=== PATIENT | male | born 1970 ===

== ENCOUNTER 2016-06-03 13:48 | Emergency (ER) | payer OTHER ==
[2016-06-03 14:10] VITALS: BP 143/107
--- NOTE | 2016-06-03 14:38 | UC ---
Respiratory Complaint HPI - HPI Summary HPI Summary: 45 yo male with intermittent hemoptysis since 2009. He has never been evaluated for this. 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[employer] - History of Current Complaint Chief Complaint: UCRespiratory Stated Complaint: COUGHING BLOOD Time Seen by Provider: 06/03/16 14:32 Hx Obtained From: Patient Onset/Duration: Gradual Onset, Lasting Weeks - yrs Timing: Intermittent Episodes Severity Initially: Mild Severity Currently: Mild Pain Intensity: 0 Pain Scale Used: 0-10 Numeric Aggravating Factors: Nothing Alleviating Factors: Nothing Associated Signs And Symptoms: Positive: Hemoptysis - Allergies/Home Medications Allergies/Adverse Reactions: Allergies Allergy/AdvReac Type Severity Reaction Status Date / Time Penicillins Allergy Intermediate Vomiting Verified 06/03/16 14:12 Lisinopril Allergy GI Upset Verified 06/03/16 14:12 Morphine Allergy GI Upset Verified 06/03/16 14:12 Shellfish Allergy Allergy Swelling Verified 06/03/16 14:12 PMH/Surg Hx/FS Hx/Imm Hx Endocrine History Of: Reports: Dyslipidemia Denies: Diabetes, Thyroid Disease, Hyperthyroidism, Hypothyroidism Cardiovascular History Of: Reports: Hypertension - off of meds now Denies: Cardiac Disorders, Pacemaker/ICD, Myocardial Infarction, Congestive Heart Failure, Atrial Fibrillation, Deep Vein Thrombosis, Bleeding Disorders Respiratory History Of: Reports: Asthma - Hx YOUNG CHILD, NONE SINCE, Bronchitis - NONE IN YEARS Denies: COPD GI/ History Of: Reports: Gastroesophageal Reflux Denies: Ulcer, Gastrointestinal Bleed, Gall Bladder Disease, Kidney Stones, Diverticulitis, Renal Disease, Urosepsis Neurological History Of: Denies: TIA, CVA, Dementia, Seizures, Migraine Psychological History Of: Denies: Anxiety, Depression, Bipolar Disorder, Schizophrenia, Post Traumatic Stress Disorder Cancer History Of: Denies: Lung Cancer, Colorectal Cancer, Breast Cancer, Prostate Cancer, Cervical Cancer Other History Of: Negative For: HIV, Hepatitis B, Hepatitis C - Surgical History Surgical History: Yes Surgery Procedure, Year, and Place: 2005 surgical repair left knee torn meniscus [facility] [place]. 2006 RIGHT LEG FRACTURE, SCREW INSERTION [facility] [place]. 2006 RIGHT LEG/ HIP SCREW REPLACED [place]. 2006 REMOVED SOME HARDWARE IN RIGHT LEG [place]. 2009 right hip replacement [place]. 1996 FRACTURED RIGHT JAW [facility] - Family History Known Family History: Positive: Hypertension Negative: Respiratory Disease - Social History Alcohol Use: Occasionally Alcohol Amount: 14 DRINKS /WEEK Substance Use Type: None Smoking Status (MU): Never Smoked Tobacco Have You Smoked in the Last Year: No Review of Systems Constitutional: Negative Skin: Negative Eyes: Negative ENT: Negative Respiratory: Other - hemoptysis today Cardiovascular: Negative Gastrointestinal: Negative Genitourinary: Negative Motor: Negative Neurovascular: Negative Musculoskeletal: Negative Neurological: Negative Psychological: Negative All Other Systems Reviewed And Are Negative: Yes Physical Exam Triage Information Reviewed: Yes Appearance: Well-Appearing, No Pain Distress, Well-Nourished Vital Signs: Initial Vital Signs Temp 98.1 F 06/03/16 14:04 Pulse 81 06/03/16 14:04 Resp 18 06/03/16 14:04 BP 143/107 06/03/16 14:04 Pulse Ox 99 06/03/16 14:04 Vital Signs Reviewed: Yes Eyes: Positive: Conjunctiva Clear ENT: Positive: Hearing grossly normal, TMs normal. Negative: Pharyngeal erythema, Nasal congestion, Nasal drainage, Tonsillar swelling, Tonsillar exudate, Trismus, Muffled/hoarse voice Neck: Positive: Supple, Nontender Respiratory: Positive: Lungs clear, Normal breath sounds, No respiratory distress, No accessory muscle use Cardiovascular: Positive: RRR, No Murmur. Negative: Tachycardia, Bradycardia Bowel Sounds: Positive: Present Musculoskeletal: Positive: ROM Intact, No Edema Neurological: Positive: Alert Psychological Exam: Normal Skin Exam: Normal UC Diagnostic Evaluation - Laboratory O2 Sat by Pulse Oximetry: 99 - normal/not hypoxic Respiratory Course/Dx - Differential Dx/Diagnosis Provider Diagnoses: hemoptysis. hypertension Discharge - Discharge Plan Condition: Stable Disposition: HOME Patient Education Materials: Hemoptysis (ED), Hypertension (ED) Referrals: Raleigh Arias MD [Primary Care Provider] - As Soon As Possible (call and ask for first available appt) Additional Instructions: return for new or worsening symptoms you may need to be referred to a bombsight specialist your BP needs to be addressed
--- NOTE | 2016-06-03 15:00 | RAD ---
INDICATION: Hemoptysis. COMPARISON: Comparison is made with prior chest x-ray study from August 02, 2006. TECHNIQUE: Dual-energy PA and lateral views of the chest were obtained. FINDINGS: The heart is within normal limits in size. Mediastinal and hilar contours appear within normal limits. The lungs are clear. No pleural effusion is present. IMPRESSION: NO EVIDENCE FOR ACTIVE CARDIOPULMONARY DISEASE.
[2016-06-03 18:40] LABS: Hematocrit 44 % (42-52); Mean Corpuscular HGB Conc 34 g/dl (31-36); Mean Corpuscular Hemoglobin 30 pg (27-31); Mean Corpuscular Volume 87 fL (80-94); Mean Platelet Volume 8 um3 (7.4-10.4); Red Blood Count 5.07 10^6/ul (4.0-5.4); Red Cell Distribution Width 14 % (10.5-15); White Blood Count 7.1 10^3/ul (3.5-10.8)
[2016-06-03 18:52] LABS: Albumin 4.6 g/dL (3.2-5.2); Calcium 9.2 mg/dL (8.6-10.3); EGFR African American 122.6 (>60); EGFR Non-African American 95.3 (>60); Globulin 2.9 g/dL (2-4); Potassium 3.5 mmol/L (3.5-5.0); Total Bilirubin 0.9 mg/dL (0.2-1.0); Total Protein 7.5 g/dL (6.4-8.9)
[2016-06-03 20:01] LABS: Erythrocyte Sed Rate 11 mm/Hr (0-14)
== END 2016-06-03 15:30 | disposition home or self-care (01) ==
LOC: UCEAST 13:48
DX: R04.2 Hemoptysis (principal); I10 Essential (primary) hypertension; Z88.5 Allergy status to narcotic agent; Z88.0 Allergy status to penicillin; Z88.8 Allergy status to other drugs, medicaments and biological substances
CPT/HCPCS: 36415; 71020; 80053; 85025; 85652; 99211; G0463

== ENCOUNTER 2017-03-31 10:11 | Emergency (ER) | payer OTHER ==
[2017-03-31 10:27] VITALS: BP 151/90
--- NOTE | 2017-03-31 12:53 | UC ---
Throat Pain/Nasal [place] HPI - HPI Summary HPI Summary: ST, nasal congestion, hoarseness, cough, stuffy ears starting 2 days ago. No fever or trouble breathing, was sent home from work today. Concerned about 94- year-old MIL, with whom he lives. - History of Current Complaint Chief Complaint: UCRespiratory Stated Complaint: SORE THROAT, CONGESTED Time Seen by Provider: 03/31/17 12:39 Hx Obtained From: Patient Onset/Duration: Gradual Onset, Lasting Days Severity: Moderate Cough: Productive - "all day and all night." Associated Signs & Symptoms: Negative: Wheezing, Fever, Vomiting - Allergies/Home Medications Allergies/Adverse Reactions: Allergies Allergy/AdvReac Type Severity Reaction Status Date / Time Penicillins Allergy Intermediate Vomiting Verified 03/31/17 10:27 Lisinopril Allergy GI Upset Verified 03/31/17 10:27 Morphine Allergy GI Upset Verified 03/31/17 10:27 Shellfish Allergy Allergy Swelling Verified 03/31/17 10:27 PMH/Surg Hx/FS Hx/Imm Hx Previously Healthy: Yes Other History Of: Negative For: HIV, Hepatitis B, Hepatitis C - Surgical History Surgical History: Yes Surgery Procedure, Year, and Place: 2005 surgical repair left knee torn meniscus [facility] [place]. 2006 RIGHT LEG FRACTURE, SCREW INSERTION [facility] [place]. 2006 RIGHT LEG/ HIP SCREW REPLACED [place]. 2006 REMOVED SOME HARDWARE IN RIGHT LEG [place]. 2009 right hip replacement [place]. 1996 FRACTURED RIGHT JAW [facility] [place] - Family History Known Family History: Positive: None, Hypertension Negative: Respiratory Disease - Social History Occupation: Employed Full-time - grounds at [place] Alcohol Use: Occasionally Alcohol Amount: 14 DRINKS /WEEK Substance Use Type: None Smoking Status (MU): Never Smoked Tobacco Have You Smoked in the Last Year: No Review of Systems Constitutional: Negative Skin: Negative Eyes: Negative ENT: Sore Throat, Ear Ache, Nasal Discharge Respiratory: Cough Cardiovascular: Negative Gastrointestinal: Negative Genitourinary: Negative Motor: Negative Neurovascular: Negative Musculoskeletal: Negative Neurological: Negative Psychological: Negative Is Patient Immunocompromised?: No All Other Systems Reviewed And Are Negative: Yes Physical Exam Triage Information Reviewed: Yes Appearance: No Pain Distress, Well-Nourished Vital Signs: Initial Vital Signs Temp 99.1 F 03/31/17 10:21 Pulse 74 03/31/17 10:21 Resp 16 03/31/17 10:21 BP 151/90 03/31/17 10:21 Pulse Ox 100 03/31/17 10:21 Vital Signs Reviewed: Yes Eye Exam: Normal Eyes: Positive: Conjunctiva Clear ENT: Positive: Hearing grossly normal, Pharynx normal, Nasal congestion, TMs normal, Hoarse voice. Negative: Nasal drainage, TM bulging, TM dull, TM red, Tonsillar swelling Dental Exam: Normal Neck exam: Normal Respiratory Exam: Other - No cough noted Respiratory: Positive: Chest non-tender, Lungs clear, Normal breath sounds, No respiratory distress, No accessory muscle use Cardiovascular Exam: Normal Cardiovascular: Positive: RRR, No Murmur Musculoskeletal Exam: Normal Neurological Exam: Normal Neurological: Positive: Alert Psychological Exam: Normal Skin Exam: Normal Throat Pain/Nasal Course/Dx - Differential Dx/Diagnosis Provider Diagnoses: URI, likely viral Discharge - Discharge Plan Condition: Stable Disposition: HOME Prescriptions: Albuterol HFA INHALER* [Ventolin HFA Inhaler*] 1 - 2 puff INH Q4H PRN #1 mdi PRN Reason: cough wheeze Patient Education Materials: Upper Respiratory Infection (ED) Forms: *Work Release Referrals: Raleigh Arias MD [Primary Care Provider] - 1 Week Additional Instructions: Call or return if you develop increasing fever, shortness of breath, chest pain , bloody sputum, or otherwise worsen. If you have not improved at all after several days, contact your primary care physician or return here. INHALED BRONCHODILATORS: You have received a prescription for an inhaled bronchodilator -- a medication which stimulates the airways in the lung to dilate. This improves the flow of air in asthma, bronchitis, and emphysema. These medicines have some similarity to adrenaline, and can cause similar side effects: shakiness, racing heart, and a sense of nervousness. These side effects can be reduced with the use of a spacer and usually decrease with time. Use 1-2 puffs up to every 4 hours as needed for wheezing or tightness in your chest. It may be helpful to use preventatively, such as before bedtime or before going outside into cold air. IF YOU FIND THAT YOU ARE CONSISTENTLY NEEDING THE INHALER MORE THAN 6 TIMES PER DAY, PLEASE CALL OR RETURN FOR FURTHER EVALUATION.
== END 2017-03-31 12:55 | disposition home or self-care (01) ==
LOC: UCEAST 10:11
DX: J06.9 Acute upper respiratory infection, unspecified (principal); Z72.89 Other problems related to lifestyle
CPT/HCPCS: 99212; G0463

== ENCOUNTER 2017-04-06 10:55 | Emergency (ER) | payer OTHER ==
[2017-04-06 11:32] VITALS: BP 138/85
--- NOTE | 2017-04-07 00:08 | UC ---
Respiratory Complaint HPI - HPI Summary HPI Summary: 46 y/o male presents to the urgent care c/o sinus congestion, sinus pain, AYON, productive cough, for the past week. Pt reports he was seen here about 1 week ago and DX with URI. He has been taking cough drops, and Tylenol w/o any improvement. He is now producing green nasal discharge and mild subjective fever at home. Pt denies SOB, chest pain, abdominal pain, dizziness, N/V/D. - History of Current Complaint Chief Complaint: UCRespiratory Stated Complaint: URI Time Seen by Provider: 04/06/17 12:44 Hx Obtained From: Patient Onset/Duration: Gradual Onset, Lasting Weeks - 1 Timing: Constant Severity Initially: Mild Severity Currently: Severe Pain Intensity: 7 Pain Scale Used: 0-10 Numeric Character: Cough: Nonproductive Aggravating Factors: Other - sinus congestion and pain Alleviating Factors: OTC Meds Associated Signs And Symptoms: Positive: Fever, URI, Nasal Congestion, Sinus Discomfort - Risk Factors Pulmonary Embolism Risk Factors: Negative Cardiac Risk Factors: Negative Pseudomonas Risk Factors: Negative Tuberculosis Risk Factors: Negative - Allergies/Home Medications Allergies/Adverse Reactions: Allergies Allergy/AdvReac Type Severity Reaction Status Date / Time Penicillins Allergy Intermediate Vomiting Verified 04/06/17 11:33 Lisinopril Allergy GI Upset Verified 04/06/17 11:33 Morphine Allergy GI Upset Verified 04/06/17 11:33 Shellfish Allergy Allergy Swelling Verified 04/06/17 11:33 PMH/Surg Hx/FS Hx/Imm Hx Previously Healthy: Yes Cardiovascular History: Hypertension GI/ History: Gastroesophageal Reflux Other History Of: Negative For: HIV, Hepatitis B, Hepatitis C - Surgical History Surgical History: Yes Surgery Procedure, Year, and Place: 2006 surgical repair left knee torn meniscus [facility] [place]. 2006 RIGHT LEG FRACTURE, SCREW INSERTION [facility] [place]. 2006 RIGHT LEG/ HIP SCREW REPLACED [place]. 2006 REMOVED SOME HARDWARE IN RIGHT LEG [place]. 2009 right hip replacement [place]. 1996 FRACTURED RIGHT JAW [facility] [place] - Family History Known Family History: Positive: Cardiac Disease, Diabetes Negative: Respiratory Disease - Social History Occupation: Employed Full-time Lives: With Family Alcohol Use: Rare Alcohol Amount: 14 DRINKS /WEEK Substance Use Type: None Smoking Status (MU): Never Smoked Tobacco Have You Smoked in the Last Year: No - Immunization History Most Recent Influenza Vaccination: 2017 Review of Systems Constitutional: Fever Skin: Negative Eyes: Negative ENT: Nasal Discharge, Sinus Congestion, Sinus Pain/Tenderness Respiratory: Cough Cardiovascular: Negative Gastrointestinal: Negative Genitourinary: Negative Motor: Negative Neurovascular: Negative Musculoskeletal: Negative Neurological: Headache Psychological: Negative Is Patient Immunocompromised?: No All Other Systems Reviewed And Are Negative: Yes Physical Exam Triage Information Reviewed: Yes Vital Signs: Initial Vital Signs Temp 98.7 F 04/06/17 11:28 Pulse 74 04/06/17 11:28 Resp 16 04/06/17 11:28 BP 138/85 04/06/17 11:28 Pulse Ox 100 04/06/17 11:28 - Additional Comments Vitals: reviewed General: Well developed, well-nourished male patient with NAD. Head and face: Normocephalic and atraumatic, Positive tenderness over the frontal and maxillary sinuses.. Eyes: PERRLA, EOMI x 2. Normal conjunctiva. No eye discharge. ENT: Ears and TM with normal limits. Nose: with yellowish discharge and erythematous mucosa. Pharynx with erythema , no exudate. Neck: Supple, no JVD, no carotid bruits and no lymphadenopathy. Lungs: clear, no rales, no rhonchi, no wheezes. CVS: RRR, S1 and S2 present no murmurs or gallops appreciated. Abdomen: soft nontender with positive bowel sounds. Extremities: no edema noted. Neuro: WNL. Skin: warm and dry UC Diagnostic Evaluation - Laboratory O2 Sat by Pulse Oximetry: 100 Respiratory Course/Dx - Course Course Of Treatment: 46 y/o male presents to the urgent care c/o sinus congestion, sinus pain, AYON, productive cough, for the past week. Pt reports he was seen here about 1 week ago and DX with URI. He has been taking cough drops , and Tylenol w/o any improvement. He is now producing green nasal discharge and mild subjective fever at home. Pt denies SOB, chest pain, abdominal pain, dizziness, N/V/D.Hx obtained. Pt with sinusitis on examination. Pt with 1 week of symptoms getting worse. Pt PCN allergic, Rx Doxycycline PO.. Tessalon PO for cough. Discharge instructions explained to Pt. Advised to Return to the clinic or PCP if symptoms do not improve.Pt understood and agreed with plan of care. - Differential Dx/Diagnosis Differential Diagnosis/HQI/PQRI: Asthma, Bronchitis, Influenza, Laryngitis, Sinusitis Provider Diagnoses: 1- Acute bacterial sinusitis. 2-Cough Discharge - Discharge Plan Condition: Stable Disposition: HOME Prescriptions: Benzonatate CAP* [Tessalon 100 MG CAP*] 100 mg PO TID PRN #15 cap PRN Reason: Cough DOXYcycline CAP(*) [DOXYcycline 100MG CAP(*)] 100 mg PO BID #20 cap Patient Education Materials: Sinusitis (ED) Forms: *Work Release Referrals: Raleigh Arias MD [Primary Care Provider] - If Needed Additional Instructions: 1- Please increase fluid intake and rest. take full course of antibiotic to avoid resistance 2-Use saline drops or spray to clear sinuses. Increase fluid intake, eat well, and rest 3-Take Tessalon tabs PO to alleviate cough, 4-Return to the clinic or PCP if symptoms do not improve for further management and treatment
== END 2017-04-06 13:26 | disposition home or self-care (01) ==
LOC: UCEAST 10:55
DX: J01.90 Acute sinusitis, unspecified (principal); B96.89 Other specified bacterial agents as the cause of diseases classified elsewhere; R05 Cough
CPT/HCPCS: 99211; G0463

== ENCOUNTER 2018-05-26 13:34 | Emergency (ER) | payer OTHER ==
[2018-05-26 13:49] VITALS: BP 147/82
--- NOTE | 2018-05-26 14:03 | ED ---
Lower Extremity - HPI Summary HPI Summary: pain left hip on bending over at work, pain started only a few days ago. worried he might have same problem in left hip as he had in the right with avascular necrosis of the hip - History of Current Complaint Chief Complaint: UCBackPain Stated Complaint: BACK,HIP PAIN Time Seen by Provider: 05/26/18 13:44 Hx Obtained From: Patient Onset of Pain: Hours Onset/Duration: Days Severity Initially: Moderate Severity Currently: Moderate Pain Intensity: 3 Timing: Constant Location: Is Discrete @ - left hip, lower back Associated Signs And Symptoms: Positive: Negative Aggravating Factor(s): Movement - Allergies/Home Medications Allergies/Adverse Reactions: Allergies Allergy/AdvReac Type Severity Reaction Status Date / Time lisinopril Allergy GI Upset Verified 05/26/18 13:50 morphine Allergy GI Upset Verified 05/26/18 13:50 Penicillins Allergy Vomiting Verified 05/26/18 13:50 shellfish derived Allergy Swelling Verified 05/26/18 13:50 Home Medications: Home Medications Ibuprofen 400 mg PO 05/26/18 [History] PMH/Surg Hx/FS Hx/Imm Hx Previously Healthy: Yes Endocrine/Hematology History: Denies: Hx Diabetes, Hx Thyroid Disease Cardiovascular History: Reports: Hx Hypertension - off of meds now Denies: Hx Congestive Heart Failure, Hx Deep Vein Thrombosis, Hx Myocardial Infarction, Hx Pacemaker/ICD Respiratory History: Reports: Hx Asthma - Hx YOUNG CHILD, NONE SINCE Denies: Hx Chronic Obstructive Pulmonary Disease (COPD), Hx Lung Cancer GI History: Reports: Hx Gastroesophageal Reflux Disease - USES NEXIUM DAILY, Hx Irritable Bowel - WATCHES DIET, DOES WELL Denies: Hx Gall Bladder Disease, Hx Gastrointestinal Bleed, Hx Ulcer, Hx Urosepsis History: Denies: Hx Kidney Stones, Hx Renal Disease Musculoskeletal History: Reports: Hx Arthritis - hx. of avascular necrosis right hip requiring surgery , Hx Tendonitis - Hx OF, LEFT THUMB, ELBOW Neurological History: Denies: Hx Dementia, Hx Migraine, Hx Seizures, Hx Transient Ischemic Attacks (TIA) Psychiatric History: Denies: Hx Anxiety, Hx Depression, Hx Schizophrenia, Hx Bipolar Disorder - Surgical History Surgery Procedure, Year, and Place: 2005 [place] [facility] [place] FRACTURE, [place] [facility] [place] RIGHT [place]G/ HIP SCREW REPLACED [place]. 2006 REMOVED SOME HARDWARE IN RIGHT LEG [place]. 2009 right hip replacement [place]. 1996 FRACTURED RIGHT [facility]AW [facility] Hx Anesthesia Reactions: Yes - 2006 SEVERE N/V Infectious Disease History: No Infectious Disease History: Denies: Hx Hepatitis, Hx Human Immunodeficiency Virus (HIV), Traveled Outside the [place] in Last 30 Days - Family History Known Family History: Positive: None, Cardiac Disease, Hypertension, Diabetes Negative: Respiratory Disease - Social History Alcohol Use: Occasionally Alcohol Amount: 14 DRINKS /WEEK Substance Use Type: Reports: None Hx Tobacco Use: No Smoking Status (MU): Current Some Day Smoker Type: Smokeless Tobacco Have You Smoked in the Last Year: No Review of Systems Constitutional: Negative Eyes: Negative ENT: Negative Cardiovascular: Negative Respiratory: Negative Gastrointestinal: Negative Musculoskeletal: Other - pain in the left hip after bending over picking up branches Skin: Negative All Other Systems Reviewed And Are Negative: Yes Physical Exam - Summary Physical Exam Summary: antalgic gait Triage Information Reviewed: Yes Vital Signs On Initial Exam: Initial Vitals Temp Pulse Resp BP Pulse Ox 36.6 C 91 18 147/82 97 05/26/18 13:44 05/26/18 13:44 05/26/18 13:44 05/26/18 13:44 05/26/18 13:44 Vital Signs Reviewed: Yes Appearance: Positive: Well-Appearing Skin: Positive: Warm Eyes: Positive: Normal ENT: Positive: Normal ENT inspection Musculoskeletal: Positive: Other - pain over left trochanteric bursa, full rom in the left hip Neurological: Positive: Normal, Sensory/Motor Intact, Abnormal Gait Diagnostics - Vital Signs Vital Signs Temp Pulse Resp BP Pulse Ox 05/26/18 13:44 36.6 C 91 18 147/82 97 - Laboratory Lab Statement: Any lab studies that have been ordered have been reviewed, and results considered in the medical decision making process. Lower Extremity Course/Dx - Diagnoses Provider Diagnoses: Trochanteric bursitis of left hip Discharge - Sign-Out/Discharge Documenting (check all that apply): Patient Departure All imaging exams completed and their final reports reviewed: Yes - Discharge Plan Condition: Fair Disposition: HOME Patient Education Materials: Hip Bursitis (ED) Referrals: Raleigh Arias MD [Primary Care Provider] - - Billing Disposition and Condition Condition: FAIR Disposition: Home
== END 2018-05-26 15:04 | disposition home or self-care (01) ==
LOC: UCEAST 13:34
DX: M70.62 Trochanteric bursitis, left hip (principal); K21.9 Gastro-esophageal reflux disease without esophagitis; Z88.8 Allergy status to other drugs, medicaments and biological substances; Z88.5 Allergy status to narcotic agent; Z88.0 Allergy status to penicillin; Z91.013 Allergy to seafood; Z72.0 Tobacco use
CPT/HCPCS: 72100; 99211; G0463